=== PATIENT | female | born 1990 | race African-American/Black ===

== ENCOUNTER 2018-05-28 06:19 | Day surgery (SDC) | payer OTHER ==
[2018-05-22 11:02] VITALS: BMI 27.8
[2018-05-28] MEDS ORDERED: methylPREDNISolone ACET (DEPO) 40 MG/1 ML VIAL ONE (07:03)
[2018-05-28] MEDS ORDERED: THROMBIN (RECOMBINANT) 5,000 UNIT VIAL TP ONE (07:03)
[2018-05-28] MEDS ORDERED: LIDOCAINE 1%/EPI 1:100000 (20 ML MULTI DOSE VIAL) ONE (07:03)
[2018-05-28] MEDS ORDERED: GUM MASTIC/STORAX/MSAL/ALCOHOL 1 DRP DROPSBTL MC ONE (07:03)
[2018-05-28] MEDS ORDERED: BUPIVACAINE HCL/PF 2.5 MG/ML - 30 ML VIAL IJ ONE (07:03)
[2018-05-28] MEDS ORDERED: CEFAZOLIN 2 GM in DEXTROSE 5%-WATER - 100 ML IVPB ONE (07:22)
[2018-05-28] MEDS ORDERED: oxyCODONE HCL 10 MG SUSTAINED ACTING TABLET PO STA (07:22)
[2018-05-28] MEDS ORDERED: GABAPENTIN 300 MG CAPSULE (FP) PO STA (07:22)
[2018-05-28] MEDS ORDERED: DEXAMETHASONE SOD PHOSPHATE/PF 10 MG/ML SDV ONE (07:57)
[2018-05-28] MEDS ORDERED: MIDAZOLAM HCL 2 MG/2 ML SINGLE DOSE VIAL ONE ×2 (07:57→09:26)
[2018-05-28] MEDS ORDERED: BUPIVACAINE HCL/PF (5 MG/ML) 30 ML VIAL IJ ONE (07:58)
--- NOTE | 2018-05-28 08:40 | HP ---
History & Physical Update - History History: No Change - Physical Physical: No Change - Assessment Assessment: No Change - Plan Plan: No Change
[2018-05-28] MEDS ORDERED: LIDOCAINE 1%/EPI 1:100000 (20 ML MULTI DOSE VIAL) IJ ONE (08:45)
[2018-05-28] MEDS ORDERED: SUCCINYLCHOLINE CHLORIDE 200 MG/10 ML VIAL ONE (08:56)
[2018-05-28] MEDS ORDERED: PROPOFOL 20 ML ONE (08:56)
[2018-05-28] MEDS ORDERED: ONDANSETRON 4 MG/2 ML VIAL ONE (09:10)
[2018-05-28] MEDS ORDERED: ceFAZolin SODIUM 1 GM VIAL ONE (09:10)
[2018-05-28] MEDS ORDERED: DEXAMETHASONE SOD PHOSPHATE 4 MG/1 ML VIAL ONE (09:10)
[2018-05-28] MEDS ORDERED: GELATIN SPONGE,ABSORBABLE 1 GM PACKET TP ONE (09:47)
[2018-05-28] MEDS ORDERED: methylPREDNISolone ACET (DEPO) 40 MG/1 ML VIAL NR ONE (09:48)
[2018-05-28] MEDS ORDERED: THROMBIN (BOVINE) 5,000 UNIT VIAL TP ONE (09:48)
[2018-05-28] MEDS ORDERED: BUPIVACAINE HCL/PF 0.25% (2.5MG/ML) 10 ML VIAL IJ ONE ×2 (10:15)
--- NOTE | 2018-05-28 10:58 | OP ---
Operative Note - Note: Operative Date: 05/28/18 Pre-Operative Diagnosis: HNP, Lumbar radiculopathy Operation: L4-L5 Laminectomy Post-Operative Diagnosis: Same as Pre-op Surgeon: Roldan Lance Wind Up Operator: Terri Grubbs Anesthesiologist/RETORT ENGINEER: Margie Avitia Anesthesia: Spinal, Local (Block) Specimens Removed: L4/L5 disc fragment Estimated Blood Loss (mls): 10 Fluid Volume Replaced (mls): 1,500 Operative Report Dictated: Yes
--- NOTE | 2018-05-28 10:59 | SURG ---
Surgery Credit Card Specialist Note Credit Card Specialist: Terri Grubbs PA-C Date of Service: 05/28/18 Diagnosis: L4-L5 HNP, Lumbar radiculopathy Procedure: L4-L5 laminectomy I was present for the entirety of the operative procedure. For further detail, please refer to operative report. Visit type - Case Type Case Type: Scheduled - Emergency Emergency Visit: No - New patient This patient is new to me today: Yes Date on this admission: 05/28/18
[2018-05-28] MEDS ORDERED: ONDANSETRON 4 MG/2 ML VIAL IVPUSH PRN (11:58)
[2018-05-28] MEDS ORDERED: oxyCODONE HCL 5 MG TABLET PO PRN (11:58)
[2018-05-28] MEDS ORDERED: LACTATED RINGERS SOLUTION 1,000 ML IV SCH (12:00)
[2018-05-28 16:32] VITALS: BP 128/70; PULSE 79; TEMP 98.4
--- NOTE | 2018-05-29 11:18 | OP ---
DATE OF OPERATION: 05/28/2018 PREOPERATIVE DIAGNOSIS: Spinal stenosis, L4-5. POSTOPERATIVE DIAGNOSIS: Spinal stenosis, L4-5. PROCEDURE PERFORMED: Laminectomy, L4-5. SURGEON: Roldan Lance MD MIXING AND DISPENSING SUPERVISOR: SHANTA Carr ESTIMATED BLOOD LOSS: 50 mL. INTRAVENOUS FLUIDS: Per Anesthesia. ANESTHESIA: Spinal/TLIP. COMPLICATIONS: There were none. DISPOSITION: Patient brought to the PACU in stable condition. INDICATION FOR SURGERY: Patient is a 28-year-old female who has been suffering from pain from his back down her legs. X-rays and MRI were completed which showed that she had herniated disk at L4-5. She had gone through an exhaustive course of treatment for this which included medications, physical therapy, as well as injections. Unfortunately, pain continued to persist despite all this. At this point, risks, benefits, and alternatives are discussed, and the patient consented to surgery. DESCRIPTION OF PROCEDURE: Patient was brought to the operating room by the Anesthesia staff after appropriate patient identification was performed. Spinal anesthesia was given. Appropriate anesthetic lines were placed. Patient was able to position himself prone onto the Jeramie frame with all the areas of bony prominences well patted at this time. Two needles were placed in the back to pedro off the L4-5 segment. X-ray was taken to confirm this was correct. Needle was removed, and 10 mL of lidocaine with epinephrine was injected into the back. At the time, her back was prepped and draped in a sterile manner. At this point, timeout was completed, and an incision was made from the top of L4 down to the bottom of L5. Dissection was carried down to the underlying fascia. The fascia was then split open at this time, and appropriate retractors were placed in. A spinal needle was placed onto the L4 lamina to pedro off the L4-5 level. An x- ray was taken to confirm this was correct. Needle was removed, and the microscope was brought in. The intraspinal segment of L4-5 was removed. Portions of the L4 and L5 lamina were removed. The flavum was identified and was removed. The thecal sac was mobilized medially, and disk herniation was noted and was removed. Portions of the inferior-superior facet were removed such that by the end of the procedure the L5 nerve root appeared to be well decompressed. All bleeding was well controlled at this time. Steroids were placed over the nerve root. FloSeal was placed over that. The fascia was closed with a number 1 Vicryl suture. Subcutaneous tissue was closed with 2-0 Vicryl sutures. Skin was closed with 3-0 Monocryl suture. Dermabond was applied. Steri-Strips were applied. Sterile dressing was applied. Patient was placed supine on the OR bed and brought to the PACU in stable condition. Ashleigh [id number] MTDD
--- NOTE | 2018-05-29 14:10 | PATH ---
Surgical Pathology Report Patient Name: CASSANDRA ANGULO [facility]. Rec. #: [id number] /Age/Gender: 1990 (Age: 28) / F Account: [id number] Location: [facility] Taken: 05/28/2018 Received: 05/28/2018 Reported: 05/29/2018 Physicians: Roldan Lance M.D. Specimen(s) Received L4-5 DISC Clinical History Spinal stenosis Final Diagnosis L4-5 DISC, LAMINECTOMY: CARTILAGINOUS TISSUE WITH DEGENERATIVE CHANGE. Electronically Signed Rupal Doran M.D. Gross Description Received in formalin labeled "L4-5 disc," is a 3.5 x 3.0 x 0.5 cm aggregate of sandoval fragments of fibrocartilaginous tissue. A traveling representative portion is submitted in one cassette. /05/28/2018 saudi05/28/2018
== END 2018-05-28 16:15 | disposition home or self-care (01) ==
LOC: FASU 06:19
PROVIDERS: ATTEND Orthopaedic Surgery Orthopaedic Surgery of the Spine
PROC: 01NB0ZZ Release Lumbar Nerve, Open Approach (ICD-10-PCS; principal; 2018-05-28 08:30)
DX: M48.061 Spinal stenosis, lumbar region without neurogenic claudication (principal)
CPT/HCPCS: 36415; 72100-TC-FY; 76000-TC-FY; 84703; 88304-TC; 94760